=== PATIENT | male | born 1955 | race Caucasian/White ===

== ENCOUNTER 2017-08-02 15:21 | Inpatient (IN) | payer MEDICARE ==
[~2017-08-02] VITALS: Ht 193 cm; Wt 120.2 kg
--- NOTE | ~2017-08-02 | CO ---
Unit #: [id number] #: [id number] Patient: RAHEEM HOLMAN [id number] [address] [address] [id number] I MR#: [id number] NAME: RAHEEM HOLMAN ROOM: 549 Age: 62 Sex: M Admission Date: 08/02/2017 : 1955 Attending Physician: Nichole Stephens M.D. Primary Care Physician: Johan Huerta M.D. CONSULTATION REPORT REASON FOR CONSULTATION Followup. DISCUSSION Mr. Raheem Holman is a 62-year-old white male, seen in room 549 bed 1 on 08/07/2017. The patient dressed casually, lying comfortably in bed. The patient's both legs were bandaged. The patient has a history of edema with maggots, not taking care of himself. Vital signs; temperature 99.2, pulse 82, respirations 22, blood pressure 116/75, and oxygen saturation 95%. The patient was pleasant and cooperative during interview. The patient is currently on oxygen 4 L on IV vanc, Zosyn, Diflucan. The patient denied any suicidal or homicidal ideation. Pleasant and cooperative. Still feeling sad and depressed. REVIEW OF SYSTEMS Complete review of systems unremarkable except as mentioned above. MENTAL STATUS EXAMINATION General appearance, the patient dressed casually in hospital attire, lying comfortably in bed. Attention span and concentration, fair. Speech, regular rate and coherent. Oriented in time, place, and person. Mood and affect; sad, and depressed. Thought process, coherent. Thought content; the patient denied any thoughts of harming self or others or any hallucination, but sad and depressed. Recent and remote memory, fair. Language, intact. Fund of knowledge, fair. Insight and judgment, fair to slightly impaired. DIAGNOSES Psychiatric: Major depressive disorder, recurrent, severe, F33.2. ASSESSMENT AND PLAN 1. Supportive psychotherapy and psychoeducation provided to the patient. 2. Educated about benefits and side effects of medication and course and prognosis of illness. 3. Advised to continue with current treatment, also with Prozac 20 mg daily. If needed, consider further adjustment of medication. Please feel free to call if any questions telephone #[phone]. Dictated by... Blanche Purvis/breann Unit #: [id number] #: [id number] Patient: RAHEEM HOLMAN TD: 08/07/2017 17:50 JOB #: [id number] CONSULTATION REPORT Page 1 of 1 X Ildefonso Chauhan MD X CONSULTATION REPORT
--- NOTE | ~2017-08-02 | CR72 ---
[facility] A Service of [facility] & [facility] RADIOLOGY TEXT RESULTS PATIENT: JOANA DUMONT LOCATION: B 549-01 : [birth year] UNIT #: [id number] AGE: [address]: BERNICE RAMIRES V SEX: M ORDER DR: [id number] [facility] [address] [place], [place] [address] [id number] I MR#: [id number] Acc #: [id number] NAME: JOANA DUMONT : 1955 SEX: M STUDY DATE/TIME: 08/02/2017 16:18 UNIT: [facility] ROOM: [facility] STUDY DESCRIPTION: CR Chest Single View Portable Attending Physician: Bernice Ramires M.D. Ordering Physician: Manuel Ames M.D. Primary Care Physician: Johan Huerta M.D. MEDICAL IMAGING REPORT This report is preliminary unless electronic signature is present EXAM Portable chest, 08/02/2017. HISTORY 62-year-old male with shortness of air for 6 months. Essential hypertension. COMPARISON None available. FINDINGS Frontal chest demonstrates mild bibasilar atelectasis. No pneumothorax. Heart size is borderline. Mediastinum and pulmonary vasculature unremarkable. IMPRESSION Borderline cardiomegaly. Bibasilar atelectasis. Dictated by... Santino Trujillo M.D. THIS IS AN ELECTRONICALLY VERIFIED REPORT Santino Trujillo M.D. at 08/03/2017 8:07 AM HOANG/macrina TD: 08/03/2017 01:57 JOB #: [id number] MEDICAL IMAGING REPORT Page 1 of 1 COPY
--- NOTE | ~2017-08-02 | CO ---
Unit #: [id number] #: [id number] Patient: RAHEEM HOLMAN [id number] [facility] [address], [place] [address] [id number] I MR#: [id number] NAME: RAHEEM HOLMAN ROOM: 549 Age: 62 Sex: M Admission Date: 08/02/2017 : 1955 Attending Physician: Nichole Stephens M.D. Primary Care Physician: Johan Huerta M.D. Consultation Date: 08/06/2017 CONSULTATION REPORT REASON FOR CONSULTATION Followup. DISCUSSION Mr. Raheem Holman is a 62-year-old white male, seen in room 549 bed 1 on 08/06/2017 at [facility]. The patient lying comfortably, pleasant, and cooperative. Denied any side effects from medication. Denied any suicidal or homicidal ideation, but still sad, depressed. Vital signs; temperature 97.4, pulse 94, respirations 18, blood pressure 124/73, and oxygen saturations 94%. REVIEW OF SYSTEMS Complete review of systems unremarkable except as mentioned above. MENTAL STATUS EXAMINATION General appearance, the patient is tall, casually dressed. The patient's both legs were bandaged. Attention span and concentration, fair. Speech; regular rate and coherent. Oriented in time, place, and person. Mood and affect, labile. Thought process, coherent. Thought content, the patient denied any thoughts of harming self or others or any psychotic symptom. Recent and remote memory, fair. Language, intact. Fund of knowledge, fair. Insight and judgment, fair to slightly impaired. DIAGNOSES Major depressive disorder, recurrent, severe, F33.2. ASSESSMENT AND PLAN 1. Supportive psychotherapy and psychoeducation provided to the patient. 2. Educated about benefits and side effects of medication and course and prognosis of illness. 3. Advised to continue with current medication; Prozac 20 mg daily. If needed, consider further adjustment of medication. Please feel free to call if any question, telephone #[phone]. Dictated by... Ildefonso Chauhan M.D. HONG/breann TD: 08/06/2017 17:22 JOB #: [id number] Unit #: [id number] #: [id number] Patient: RAHEEM HOLMAN CONSULTATION REPORT Page 1 of 1 X Ildefonso Chauhan MD CONSULTATION REPORT
--- NOTE | ~2017-08-02 | US84 ---
[id number] [facility] [address] [place], [place] [address] [id number] I MR#: [id number] Acc #: [id number] NAME: JOANA DUMONT : 1955 SEX: M STUDY DATE/TIME: 08/04/2017 11:22 UNIT: C5B ROOM: [facility] STUDY DESCRIPTION: US LE Veins Complete Saad Stdy Attending Physician: Tal Borden M.D. Ordering Physician: Tal Borden M.D. Primary Care Physician: Johan Huerta M.D. MEDICAL IMAGING REPORT This report is preliminary unless electronic signature is present EXAM Bilateral lower extremity venous duplex Doppler. INDICATIONS Swelling and edema and bilateral lower extremities for 6 months. COMPARISON 04/19/2013. TECHNIQUE Venous ultrasound examination of both lower extremities was performed using grayscale, spectral Doppler and color flow Doppler imaging. FINDINGS The examination is negative. There is no evidence of deep venous thrombus from the groin to the lower calf bilaterally. Visualized greater saphenous veins are also patent. IMPRESSION Negative examination. No evidence of lower extremity DVT. Dictated by... Reynaldo Zhang M.D. THIS IS AN ELECTRONICALLY VERIFIED REPORT Reynaldo Zhang M.D. at 08/05/2017 1:25 PM JESSA/barron TD: 08/05/2017 05:16 JOB #: [id number] MEDICAL IMAGING REPORT Page 1 of 1 COPY
--- NOTE | ~2017-08-02 | DS ---
Unit #: [id number] #: [id number] Patient: JOANA DUMONT [id number] [facility] [place] [facility]. [place], [place] [address] [id number] I MR#: [id number] NAME: JOANA DUMONT ROOM: 549 Age: 62 Sex: M Admission Date: 08/02/2017 : 1955 Discharge Date: 08/08/2017 Attending Physician: Nichole Stephens M.D. Primary Care Physician: Johan Huerta M.D. DISCHARGE SUMMARY DIAGNOSIS ON ADMISSION Bilateral lower extremity cellulitis. DIAGNOSES ON DISCHARGE 1. Bilateral lower extremity cellulitis. 2. Chronic systolic congestive heart failure. 3. Azhxiqkn-ye-hbnzat pulmonary hypertension. 4. Morbid obesity. 5. Major depression. 6. Ejection fraction of 45%. 7. Utsk-cs-fbmpgbgr tricuspid regurgitation. CONSULTATIONS 1. Dr. Huerta in cardiac consultation. 2. Dr. Chauhan in psychiatric consultation. 3. Patient was seen by Dr. Beckham in ID consultation. LABS AND PROCEDURES DONE LABS: The patient's creatinine today is 0.8, sodium is 139, potassium is 4.1. LDL is 95. TSH was 1.89. WBC was 10.3, hemoglobin 10.8, platelet count was 318. Patients fasting glucose level was 105 this morning. Blood culture was negative. IMAGING: Bilateral lower extremity venous Dopplers did not reveal any evidence of venous (1) . HOSPITAL COURSE Wvcam-aert-dae patient was admitted to [facility] with shortness of air. Details are as per admission H and P. 1. Bilateral lower extremity cellulitis. Patient was treated with IV antibiotics and was seen by infectious disease in consultation. Patient's redness has improved, but infectious disease has recommended that it will take long time because of the edema. 2. Congestive heart failure. Patient was treated with IV diuretics. Was seen by Dr. Huerta in consultation. Patient had ejection fraction of 35 to 40% in 2014. Patient also had a cardiac cath in 2010, which had shown nonobstructive coronary artery disease. Patient has responded well and is on fluid restriction. Patient will be discharged to rehab after seen by cardiology and will need to follow with them on outpatient basis. Patient admits that he was noncompliant with his care. Patient had echocardiogram done on this admission, which had shown ejection fraction of 45%. Patient was seen by physical therapy who has recommended subacute rehab. Unit #: [id number] #: [id number] Patient: JOANA DUMONT PHYSICAL EXAMINATION GENERAL: Today, patient is comfortable, is not in any acute distress. VITAL SIGNS: His vital signs reveal temperature of 98.1. Pulse is 80 per minute. Respiratory rate is 16 per minute. Blood pressure is 154/83. HEENT: HEENT examination revealed no conjunctival congestion. Sclera is nonicteric. NECK: Neck is supple. Trachea is central. RESPIRATORY: Respiratory examination revealed decreased breath sounds bilaterally. There are no wheezes or crackles. HEART: Heart is regular rate and rhythm. S1, S2. ABDOMEN: Abdomen is soft, nontender. Bowel sounds are present in all 4 quadrants. SKIN: Skin is warm and dry. EXTREMITIES: 2+ edema. Patient has some weeping edema. RECOMMENDATIONS ON DISCHARGE 1. Condition is stable. 2. Activity is as tolerated. DISCHARGE MEDICATIONS Medications are: 1. Lasix 40 mg p.o. b.i.d. (8 a.m. and 2 p.m.). 2. Lisinopril 2.5 mg p.o. daily. 3. Coreg 6.25 mg p.o. b.i.d. 4. Prozac 20 mg p.o. daily. 5. Tylenol 650 mg p.o. q.4 hours p.r.n. 6. Spironolactone 25 mg p.o. daily. 7. Levaquin 750 mg p.o. daily for 1 week. 8. Doxycycline 100 mg p.o. b.i.d. for 1 week. 9. Potassium chloride 20 mEq p.o. daily. DISPOSITION Patient will be transferred to rehab facility. FOLLOWUP Patient is advised to follow up with cardiology as recommended. DISCHARGE DIET Please make note patient is on 1,800 mL fluid restriction and daily weight. NOTE: The plan was discussed in detail with patient, who showed complete understanding. We will check patient's pulse ox on room air prior to discharge to determine if he will need oxygen on transfer. Patient is promising to comply with his care. Dictated by... Blanche Peters/gabi TD: 08/08/2017 12:37 JOB #: [id number] Unit #: [id number] #: [id number] Patient: JOANA DUMONT Gertrude DISCHARGE SUMMARY Page 1 of 1 X Nichole Stephens MD DISCHARGE SUMMARY
--- NOTE | ~2017-08-02 | HP ---
Unit #: [id number] #: [id number] Patient: JOANA DUMONT [address] [facility]. [place], [place] [address] [id number] I MR#: [id number] NAME: JOANA DUMONT. ROOM: 29510 Age: 62 Sex: M Admission Date: 08/02/2017 : 1955 Attending Physician: Tal Borden M.D. Primary Care Physician: Johan Huerta M.D. HISTORY AND PHYSICAL HISTORY OF PRESENT ILLNESS The patient is a 62-year-old man with apparent prior history of congestive heart failure. The patient does not follow up with a primary care physician and does not take any medications at home. The last admission the patient had was at [facility] for bilateral leg swelling as well as maggots to his lower extremities. The patient presents today with symptoms of swelling of both of his lower extremities along with foul smelling legs which have been persistent in worsening over the past six months, more so over the last one month. PAST MEDICAL HISTORY Congestive heart failure, previous lower extremity cellulitis and lower extremity edema and maggots to both lower extremities. SOCIAL HISTORY Quit smoking 12 years ago, no longer smokes, no alcohol use, no illicit substance use. ALLERGIES No known drug allergies. HOME MEDICATIONS None. REVIEW OF SYSTEMS Positive for mild shortness of breath on exertion, bilateral lower extremity swelling, bilateral lower extremity smell, maggots over lower extremities. PHYSICAL EXAMINATION GENERAL: Awake, alert, oriented, morbidly obese. HEENT: Extraocular muscles intact. PERRLA. Head atraumatic/normocephalic. NECK: No JVD. Supple. Trachea midline. CARDIAC: Regular rate and rhythm. LUNGS: Bilateral air entry. Scattered rhonchi. ABDOMEN: Soft, nontender, bowel sounds positive. EXTREMITIES: Bilateral lower extremity edema, erythema, also has foul smell to it and sloughing of skin along with maggots. SENIOR WEALTH ADVISOR: No acute focal deficits. ASSESSMENT AND PLAN 1. Lower extremity cellulitis, severe, with bilateral lower extremity Unit #: [id number] #: [id number] Patient: JOANA DUMONT edema severe. Plan is to order empiric IV broad-spectrum antibiotics. Order wound care consultation. With regular cleansing to the lower extremities twice a day and Kerlix wrap. Obtain records from last admission at [facility]. 2. Congestive heart failure, qpvxy-lv-eknqhfs. Plan is to continue IV diuresis with Lasix. Start patient on DEBBI inhibitor. Followup chest x-ray tomorrow. 3. DVT prophylaxis Lovenox 40 mg subcu q.24 h. Bilateral lower extremity venous Dopplers. Dictated by Blanche Pimentel/rosy TD: 08/02/2017 20:46 JOB #: [id number] HISTORY AND PHYSICAL Page 1 of 1 X X HISTORY AND PHYSICAL
--- NOTE | ~2017-08-02 | US136 ---
[facility] A Service of [facility] & [facility] RADIOLOGY TEXT RESULTS PATIENT: JOANA DUMONT LOCATION: [facility] 549-01 : [birth year] UNIT #: [id number] AGE: [address]: BERNICE RAMIRES V SEX: M ORDER DR: [id number] [facility] [address] [place], [place] [address] [id number] I MR#: [id number] Acc #: [id number] NAME: JOANA DUMONT : 1955 SEX: M STUDY DATE/TIME: 08/03/2017 14:55 UNIT: [facility] ROOM: [facility] STUDY DESCRIPTION: US U/L Ext Art Study Ltd Bilat Attending Physician: Bernice Ramires M.D. Ordering Physician: Bernice Ramires M.D. Primary Care Physician: Johan Huerta M.D. MEDICAL IMAGING REPORT This report is preliminary unless electronic signature is present EXAM Bilateral lower extremity arterial ultrasound, ankle brachial index study HISTORY Bilateral rest pain and claudication in lower extremities with dependent rubor atrophic nails and bilateral leg swelling. Symptoms for 6 months. FINDINGS The right brachial pressure is 121, the left could not be obtained because of an IV site. The right DP pressure is 87, the right PT pressure is 97, right great toe pressure is 61. Left PT pressure is 112, left DP pressure 98, left great toe pressure is 71. IMPRESSION Mildly decreased pressures in both ankles with an ROMAN of 0.8 on the right and 0.93 on the left. Pressures were identified in both great toes. Dictated by... Kevin Carrero M.D. THIS IS AN ELECTRONICALLY VERIFIED REPORT Kevin Carrero M.D. at 08/04/2017 9:06 AM LETY/erasmo TD: 08/04/2017 03:36 JOB #: [id number] MEDICAL IMAGING REPORT Page 1 of 1 COPY
--- NOTE | ~2017-08-02 | CO ---
Unit #: [id number] #: [id number] Patient: RAHEEM HOLMAN [id number] [facility] [address] [place], [place] [address] [id number] I MR#: [id number] NAME: RAHEEM HOLMAN. ROOM: 549 Age: 62 Sex: M Admission Date: 08/02/2017 : 1955 Attending Physician: Tal Borden M.D. Primary Care Physician: Johan Huerta M.D. Consultation Date: 08/05/2017 CONSULTATION REPORT REASON FOR CONSULTATION Depression. HISTORY OF PRESENT ILLNESS Mr. Raheem Holman is a 62-year-old white male, seen in room 549 bed 1 on 08/05/2017 at [facility]. The patient dressed casually in hospital attire, seemed somewhat anxious and nervous. The patient has multiple bandages on both his lower leg due to edema. The patient currently denied any suicidal or homicidal ideation. Denied any psychotic symptom. Reported feeling sad and depressed. Reported he was procrastinating to come to the hospital and ended up getting very sick. The patient's vital signs; temperature 98.4, pulse 89, respirations 20, blood pressure 115/50, oxygen saturations 96%. The patient was admitted due to symptoms of congestive heart failure, noncompliant with medication, leg swelling as well as maggots in his lower extremity. The patient presented with symptoms of swelling to the lower extremity and foul-smelling worsening in the last 6 months. The patient has been neglecting his care to the point worsening of his CHF leading to lower extremity cellulitis and lower extremity edema and maggots in both lower extremity. The patient was somewhat guarded, paranoid. The patient's vital signs; temperature 98.4, pulse 89, respirations 20, blood pressure 115/50, oxygen saturations 96%. PAST PSYCHIATRIC HISTORY Unknown for any history of any psychiatric treatment, depression, or suicide attempt. MEDICAL HISTORY Remarkable for history of CHF, lower extremity cellulitis, edema. ALLERGIES No known drug allergies. HOME MEDICATIONS None. FAMILY HISTORY AND SOCIAL HISTORY The patient has a poor support system. No history of abuse. Denied use of any drugs or alcohol. REVIEW OF SYSTEMS Complete review of systems is unremarkable except as mentioned above. PHYSICAL EXAMINATION Unit #: [id number] #: [id number] Patient: RAHEEM HOLMAN Vital signs, please see above. MENTAL STATUS EXAMINATION General appearance, the patient tall, dressed casually in hospital attire, has a bandages in both of legs. Attention span and concentration, fair. Speech, regular rate. Oriented in time, place, and person. Mood and affect; sad and depressed. Thought process, circumstantial. Thought content, the patient denied any thoughts of harming self or others, but somewhat guarded and paranoid. Recent and remote memory, fair. Language, intact. Fund of knowledge, fair. Insight and judgment, fair to slightly impaired. DIAGNOSES Psychiatric: Major depressive disorder, recurrent, severe, F33.2; rule out psychosis, not otherwise specified, F29.0. Secondary diagnosis: Deferred. Medical diagnosis: Please refer to H and P. Stressors: Psychosocial stressors. ASSESSMENT AND PLAN 1. Supportive psychotherapy and psychoeducation provided to the patient. 2. Educated about benefits and side effects of medication and course and prognosis of illness. 3. Advised to continue with current treatment and advised to start the patient on Prozac 20 mg daily due to long acting medication half-life of 28 days. If needed, consider medication such as Zyprexa. We will continue to follow. Please feel free to call if any question telephone #[phone]. Dictated by... Ildefonso Chauhan M.D. HONG/breann TD: 08/05/2017 16:18 JOB #: [id number] CONSULTATION REPORT Page 1 of 1 X Ildefonso Chauhan MD X CONSULTATION REPORT
--- NOTE | ~2017-08-02 | CO ---
Unit #: [id number] #: [id number] Patient: JOANA DUMONT [id number] [address] [place], [place] [address] [id number] MR#: [id number] NAME: JOANA DUMONT ROOM: 549 Age: 62 Sex: M Admission Date: 08/02/2017 : 1955 Attending Physician: Nichole Stephens M.D. Primary Care Physician: Johan Huerta M.D. CONSULTATION REPORT REASON FOR CONSULTATION Congestive heart failure. HISTORY OF PRESENT ILLNESS This is a 62-year-old white male, who is known to Dr. Huerta, who has a history of chronic systolic and diastolic heart failure with ejection fraction per cardiac catheterization in 2010 was 20% to 25%. Cardiac catheterization findings showed 90% stenosis in the second marginal branch and first diagonal branch, for which he was treated medically because of absence of chest pain. AICD was discussed; however, the patient failed to follow up with Cardiology. The patient presents to the emergency room with a complaint of lower extremity edema and shortness of breath. He has a longstanding history of lower extremity edema, that has worsened over the past one month. He reports dyspnea on exertion with occasional dizziness. He has no chest pain. He has occasional palpitations. He denies paroxysmal nocturnal dyspnea or orthopnea. He states he is in the bed most of the day and only gets up to fix food and go to the bathroom. He uses a walker. He states his activity is limited because of short oxygen cord. He drinks six 15 ounces of bottle water a day and eats mostly processed foods like Ramen noodles and TV-type dinners. Friend goes to the grocery for him. He does not leave the house. He has not seen a MD for several years nor does he take any medications. His hygiene is also poor. BNP on admission was 98. His chest x-ray did not denote heart failure. He has no dyspnea at rest. PAST MEDICAL HISTORY 1. Right and left heart cardiac catheterization on 05/17/2011 shows left main and right coronary artery are normal. Left circumflex artery is nondominant vessel, normal. Proximal first marginal branch with 30% stenosis. Second marginal branch 90%. LAD normal. First diagonal branch 90% after the origin. Second diagonal branch normal. Ejection fraction of 20% to 25%. Pulmonary artery pressure is 55/28 with mean of 38. Pulmonary capillary wedge pressure is A-wave 25, V-wave 25, mean of 23. He was continued on medical therapy. 2. A 2D echocardiogram on 04/28/2015 shows ejection fraction of 35% to 40% while on dobutamine. Right ventricle is [id number] dilated. Right atrium mildly dilated. Valves are not well visualized. 3. Nonischemic cardiomyopathy. 4. Chronic systolic/diastolic heart failure. 5. Hypertension. 6. Hyperlipidemia. 7. COPD, on home oxygen. 8. Pulmonary hypertension. Unit #: [id number] #: [id number] Patient: JOANA DUMONT 9. Former smoker. 10. Obesity. PAST SURGICAL HISTORY 1. Right forearm cyst removal. 2. Forehead tumor excision. 3. Tonsillectomy. 4. Appendectomy. SOCIAL HISTORY The patient lives at home alone. He quit smoking 12 years ago, but previously smoked three packs of cigarettes a day. He denies illicit drug or alcohol use. Ambulates with a walker. FAMILY HISTORY Positive for myocardial infarction in his father at age 83. ALLERGIES No known drug allergies. HOME MEDICATIONS No current medications. REVIEW OF SYSTEMS CONSTITUTIONAL: Negative for fever or chills. Has no weight gain or weight loss. HEENT: No headache. No vision changes or difficulty with swallowing. Has occasional dizziness. CARDIOVASCULAR: Has no symptoms of angina. Reports occasional palpitations. Denies paroxysmal nocturnal dyspnea and orthopnea. No syncope or near syncope. RESPIRATORY: Has dyspnea, that occurs on exertion. Occasional nonproductive cough. No hemoptysis. GASTROINTESTINAL: No abdominal pain, nausea, or vomiting. EXTREMITIES: Positive for lower extremity edema. PHYSICAL EXAMINATION VITAL SIGNS: Blood pressure 113/74, heart rate 75, temperature 98.7. BMI of 32. GENERAL: This is an obese 62-year-old white male, who is in no acute respiratory distress. NEUROLOGIC: He is awake, alert, and oriented. There are no focal weaknesses. NECK: Trachea is midline. No thyromegaly or lymphadenopathy. No jugular venous distention. HEART: S1 and S2 heart sounds are normal. No murmurs. No rubs or clicks. Regular rate and rhythm with occasional ectopic beat. LUNGS: Clear with diminished breath sounds throughout. No rales, rhonchi, or wheezing. ABDOMEN: Soft, obese. Good bowel sounds are present. No organomegaly. EXTREMITIES: With 2+ leg edema. SKIN: Warm and dry. Bilateral lower extremities with redness and thick scaly skin. DIAGNOSIS STUDIES LABORATORY RESULTS: Hemoglobin 10.5, hematocrit 31.8, platelet count 341, and white count 9.9. Sodium 136, potassium 3.1, BUN 9, creatinine 0.9, glucose 113, and magnesium 1.4. BNP 98 on admission. Troponin is less Unit #: [id number] #: [id number] Patient: JOANA DUMONT than 0.05 on admission. IMAGING STUDIES: Chest x-ray noted for COPD. ABIs 0.8 on the right, 0.93 on the left. Venous Doppler study, negative for deep vein thrombosis. CARDIOVASCULAR STUDIES: Electrocardiogram, sinus tachycardia, rate of 110 beats per minute with frequent premature ventricular complexes. Incomplete right bundle-branch block. IMPRESSION 1. Bilateral lower extremity cellulitis. 2. Chronic systolic/diastolic heart failure. 3. Nonischemic cardiomyopathy with ejection fraction of 35% to 40% in 2010 while on dobutamine. 4. Hypertension. 5. Hyperlipidemia. 6. Chronic obstructive pulmonary disease, on home oxygen. 7. Hypokalemia. 8. Hypomagnesemia. 9. Nonsustained ventricular tachycardia. 10. Coronary artery disease with 90% stenosis to the first diagonal and first marginal branch per cardiac catheterization in 2010. PLAN 1. Cardiology was consulted for congestive heart failure. The patient is currently on IV diuretics. We will place on fluid and sodium restriction. 2. The patient has been started on DEBBI inhibitor. We will control heart rate with addition of beta-jae given nonsustained ventricular tachycardia. 3. Replace electrolytes. 4. We will start on aspirin because the history of coronary artery disease. 5. Lipid levels will be obtained. 6. Further recommendations to follow. Thank you for allowing us to assist with this patient's care. Dictated by... Parag Gonzalez A.P.R.N. for Blanche Delcid/breann TD: 08/07/2017 08:44 JOB #: [id number] Unit #: [id number] #: [id number] Patient: JULIA,JOANA R CONSULTATION REPORT Page 1 of 1 X Parag Gonzalez APRN CONSULTATION REPORT
--- NOTE | ~2017-08-02 | EKG ---
PATIENT: JOANA DUMONT UNIT #: [id number] Ventricular Rate: 100 BPM Atrial Rate: 100 BPM P-R Interval: 154 ms QRS Duration: 120 ms Q-T Interval: 378 ms QTC Calculation(Bezet): 487 ms P [place]: 73 degrees Calculated R [place]: 51 degrees Calculated T [place]: 55 degrees Diagnosis Line: Sinus rhythm with frequent and consecutive Diagnosis Line: Premature ventricular complexes and Premature Diagnosis Line: atrial complexes Diagnosis Line: Incomplete right bundle branch block Diagnosis Line: Possible Inferior infarct , age undetermined Diagnosis Line: Abnormal ECG Diagnosis Line: When compared with ECG of 02-AUG-2017 16:13, Diagnosis Line: Premature ventricular complexes are now Present Diagnosis Line: Borderline criteria for Inferior infarct are now Diagnosis Line: Present Diagnosis Line: Confirmed by EKTA DURAN MD ([id number]) on 08/11/2017 Diagnosis Line: 3:16:05 PM INTERPRETING MD: RENEE ONOFRE
--- NOTE | ~2017-08-02 | CO ---
Unit #: [id number] #: [id number] Patient: RAHEEM HOLMAN [id number] [place], [place] [address] [id number] MR#: [id number] NAME: RAHEEM HOLMAN ROOM: 549 Age: 62 Sex: M Admission Date: 08/02/2017 : 1955 Attending Physician: Nichole Stephens M.D. Primary Care Physician: Johan Huerta M.D. Consultation Date: 08/08/2017 CONSULTATION REPORT REASON FOR CONSULTATION Followup. DISCUSSION Mr. Raheem Holman is a 62-year-old white male, seen in room 549, bed 1 on 08/08/2017 at [facility]. The patient dressed casually, lying comfortably in bed. The patient reports feeling better, sleeping good. No side effects from medication. Compliant with medication. The patient denied any suicidal or homicidal ideation. Denied any psychotic symptom. Vital signs; temperature 97.9, pulse 52, respirations 18, blood pressure 133/81, oxygen saturation 100%. 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 REVIEW OF SYSTEMS Complete review of system unremarkable. MENTAL STATUS EXAMINATION General appearance; the patient dressed in hospital attire, lying comfortably in bed. Attention span and concentration, fair. Speech, regular rate. Oriented in time, place, and person. Mood and affect, sad and dysphoric. Thought process, coherent. Thought content, the patient denied any thoughts of harming self or others or any psychotic symptom. Recent and remote memory, fair. Language, intact. Fund of knowledge, fair. Insight and judgment, fair to slightly impaired. DIAGNOSIS Psychiatric: Major depressive disorder, recurrent, severe, F33.2. ASSESSMENT/PLAN 1. Supportive psychotherapy and psychoeducation provided to the patient. 2. Educated about benefits and side effects of medication and course and prognosis of illness. 3. Advised to continue with current medication. If needed, consider further adjustment of medication. Please feel free to call if any question, telephone #[phone]. Dictated by... Ildefonso Chauhan M.D. HONG/breann TD: 08/08/2017 15:29 Unit #: [id number] #: [id number] Patient: RAHEEM HOLMAN Gertrude JOB #: [id number] CONSULTATION REPORT Page 1 of 1 X Ildefonso Chauhan MD CONSULTATION REPORT
--- NOTE | ~2017-08-02 | CR63 ---
[facility] A Service of [facility] RADIOLOGY TEXT RESULTS PATIENT: JOANA DUMONT LOCATION: B 549-01 : [birth year] UNIT #: [id number] AGE: [address]: BERNICE RAMIRES V SEX: M ORDER DR: [id number] [facility] [address] [place], [place] [address] [id number] MR#: [id number] Acc #: [id number] NAME: JOANA DUMONT : 1955 SEX: M STUDY DATE/TIME: 08/03/2017 10:53 UNIT: [facility] ROOM: [facility] STUDY DESCRIPTION: CR Chest 2 View Attending Physician: Bernice Ramires M.D. Ordering Physician: Bernice Ramires M.D. Primary Care Physician: Johan Huerta M.D. MEDICAL IMAGING REPORT This report is preliminary unless electronic signature is present EXAM Chest 08/03/2017 HISTORY 62-year-old male patient short of breath, edema in bilateral lower extremities past 6 months. Previous smoker. COMPARISON Portable chest 08/02/2017 FINDINGS Two-view chest demonstrates normal heart size. Hilar structures and mediastinal contours are preserved. Lungs are hyperinflated with flattened diaphragms. There are no infiltrates. Costophrenic angles are poorly defined. IMPRESSION COPD. No acute chest finding. Dictated by... Ismael Blum M.D. THIS IS AN ELECTRONICALLY VERIFIED REPORT Ismael Blum M.D. at 08/05/2017 12:02 PM AMADEO/tasha TD: 08/03/2017 15:35 JOB #: [id number] MEDICAL IMAGING REPORT Page 1 of 1 COPY
--- NOTE | ~2017-08-02 | EKG ---
PATIENT: JOANA DUMONT UNIT #: [id number] Ventricular Rate: 110 BPM Atrial Rate: 110 BPM P-R Interval: 154 ms QRS Duration: 110 ms Q-T Interval: 356 ms QTC Calculation(Bezet): 481 ms P [place]: 36 degrees Calculated R [place]: 47 degrees Calculated T [place]: 46 degrees Diagnosis Line: Sinus tachycardia with Premature atrial complexes Diagnosis Line: with Aberrant conduction Diagnosis Line: Incomplete right bundle branch block Diagnosis Line: Borderline ECG Diagnosis Line: No previous ECGs available Diagnosis Line: Confirmed by LUIS ART MD ([id number]) on Diagnosis Line: 08/03/2017 10:53:26 AM INTERPRETING MD: RUBENS ONOFRE
[~2017-08-02 15:21] MED LIST: ACETAMINOPHEN PO; ALBUTEROL17 GM INH; ALDACTONE PO; ALDACTONE25 MG PO; ASPIRIN ENTERI325 M1 PO; ASPIRIN325 M1 PO; BACTROBAN22 GM TP; CARVEDILOL3.125 MG PO; CIPRO PO; CLARITIN10 M1 PO; CLOBEVATE45 GM TOP; COATED ASPIRIN325 M1 PO; COREG12.5 MG PO; COREG6.25 MG PO; DAKIN'S MODIF1000 ML EXT; FLONASE 0.05% N16 G1; FUROSEMIDE40 MG PO; LASIX PO; LASIX80 MG PO; LISINOPRIL20 MG PO; NICOTINE TRANSD21 MG EXT; NO MEDICATIONS; PREDNISONE PO; PROAIR HFA8.5 GM IH; SANTYL15 G1 TP; SYMBICORT 16010.2 GM IH; TRIAMCINOLONE A15 G2 EXT; ZESTRIL40 MG PO
[2017-08-02 16:27] LABS: BASOPHIL# 0.1 X10e3 (0-0.3); BASOPHIL% 0.8 % (0-2.5); EOSINOPHIL# 0.4 X10e3 (0-0.7); EOSINOPHIL% 3.8 % (0.0-7.0); HEMOGLOBIN 12.4 gm/dL (13.0-16.0); LYMPHOCYTE# 0.8 X10e3 (1.0-3.5); LYMPHOCYTE% 7.5 % (17.0-45.0); MEAN CELL VOLUME 85.4 FL (83-96); MEAN CORPUSCULAR HEMOGLOBIN 27.8 PG (28-34); MEAN CORPUSCULAR HGB CONC 32.6 g/dL (30-36); MEAN PLATELET VOLUME 6.1 FL (6.5-11.5); MONOCYTE# 0.6 X10e3 (0-1.0); MONOCYTE% 5.4 % (3.0-12.0); NEUTROPHIL# 9.1 X10e3 (1.5-7.1); NEUTROPHIL% 82.5 % (40-75); PLATELET COUNT 472 X10e3 (140-420); RED BLOOD COUNT 4.45 X10e (3.90-5.60); RED CELL DISTRIBUTION WIDTH 16.7 % (11.0-15.5)
[2017-08-02 16:38] LABS: POC - TROPONIN <0.05 ng/mL (<=0.05)
[2017-08-02 16:39] LABS: DIFF IND NO
[2017-08-02 16:46] LABS: CALCIUM SERUM 8.8 mg/dL (8.4-10.2); GLOM FILT RATE Estimated 81.5 mL/min (>60); POTASSIUM 5.3 mmol/L (3.5-5.1)
[2017-08-03 03:39] LABS: ARTERIAL BLD GAS O2 SATURATION 92.2 % (90.0-100.0); ARTERIAL BLOOD GAS CARBOXY HB 1.6 %sat (0.0-9.0); ARTERIAL BLOOD GAS HCO3 33.2 mmol/L; ARTERIAL BLOOD GAS MET HB 0.8 %sat (0.0-2.0); ARTERIAL BLOOD GAS pH 7.357 (7.350-7.450)
[2017-08-03 03:40] LABS: ARTERIAL BLOOD GAS ALLEN TEST NORMAL; ARTERIAL BLOOD GAS ART SITE RIGHT RADIAL; ARTERIAL BLOOD GAS DELIVERY NASAL CANNULA; ARTERIAL BLOOD GAS PCO2 59.1 mmHg (35.0-45.0); ARTERIAL BLOOD GAS PO2 70.3 mmHg (80.0-100); ARTERIAL DRAW? YES
[2017-08-04 05:42] LABS: BUN/CREATININE RATIO 14.44; CALCIUM SERUM 7.7 mg/dL (8.4-10.2); CREATININE SERUM 0.9 mg/dL (0.6-1.4); GLOM FILT RATE Estimated 92.5 mL/min (>60); POTASSIUM 3.8 mmol/L (3.5-5.1)
[2017-08-05 05:35] LABS: HEMATOCRIT 30.9 % (38.0-50.0); HEMOGLOBIN 10.3 gm/dL (13.0-16.0); MEAN CELL VOLUME 85.6 FL (83-96); MEAN CORPUSCULAR HEMOGLOBIN 28.5 PG (28-34); MEAN CORPUSCULAR HGB CONC 33.3 g/dL (30-36); RED BLOOD COUNT 3.61 X10e (3.90-5.60); RED CELL DISTRIBUTION WIDTH 16.4 % (11.0-15.5); WHITE BLOOD COUNT 8.4 X10e3 (4.0-10.5)
[2017-08-05 06:37] LABS: BUN/CREATININE RATIO 13.75; CALCIUM SERUM 7.6 mg/dL (8.4-10.2); CREATININE SERUM 0.8 mg/dL (0.6-1.4); GLOM FILT RATE Estimated 97.1 mL/min (>60); POTASSIUM 3.2 mmol/L (3.5-5.1)
[2017-08-06 03:19] LABS: HEMATOCRIT 31.8 % (38.0-50.0); HEMOGLOBIN 10.5 gm/dL (13.0-16.0); MEAN CELL VOLUME 86.3 FL (83-96); MEAN CORPUSCULAR HEMOGLOBIN 28.5 PG (28-34); MEAN PLATELET VOLUME 6.4 FL (6.5-11.5); RED BLOOD COUNT 3.69 X10e (3.90-5.60); RED CELL DISTRIBUTION WIDTH 15.9 % (11.0-15.5); WHITE BLOOD COUNT 9.9 X10e3 (4.0-10.5)
[2017-08-06 03:54] LABS: CALCIUM SERUM 7.5 mg/dL (8.4-10.2); CREATININE SERUM 0.9 mg/dL (0.6-1.4); GLOM FILT RATE Estimated 92.5 mL/min (>60); POTASSIUM 3.1 mmol/L (3.5-5.1)
[2017-08-07 06:29] LABS: HEMATOCRIT 32.9 % (38.0-50.0); HEMOGLOBIN 10.8 gm/dL (13.0-16.0); MEAN CELL VOLUME 87.1 FL (83-96); MEAN CORPUSCULAR HEMOGLOBIN 28.6 PG (28-34); MEAN CORPUSCULAR HGB CONC 32.8 g/dL (30-36); MEAN PLATELET VOLUME 6.2 FL (6.5-11.5); RED BLOOD COUNT 3.77 X10e (3.90-5.60); RED CELL DISTRIBUTION WIDTH 16.3 % (11.0-15.5); WHITE BLOOD COUNT 10.3 X10e3 (4.0-10.5)
[2017-08-07 07:21] LABS: CHOLESTEROL 145 mg/dL (0-200); HDL CHOLESTEROL 31 mg/dL (29-75); LDL CHOLESTEROL 95 mg/dL (-130); LDL/HDL RATIO 3 RATIO (0-4); TRIGLYCERIDES 93 mg/dL (10-160)
[2017-08-07 08:06] LABS: BUN/CREATININE RATIO 15.55; CALCIUM SERUM 8.1 mg/dL (8.4-10.2); CREATININE SERUM 0.9 mg/dL (0.6-1.4); GLOM FILT RATE Estimated 92.5 mL/min (>60); MAGNESIUM 1.5 mg/dL (1.6-3.0); POTASSIUM 3.6 mmol/L (3.5-5.1)
[2017-08-08 06:35] LABS: BUN/CREATININE RATIO 17.5; CALCIUM SERUM 8.5 mg/dL (8.4-10.2); CREATININE SERUM 0.8 mg/dL (0.6-1.4); GLOM FILT RATE Estimated 97.1 mL/min (>60); POTASSIUM 4.1 mmol/L (3.5-5.1)
== END 2017-08-08 19:56 | DRG 291 ==
LOC: CED 15:21 → CEDOF 19:59 → CED 19:59 → C5B 21:09 → CEDOF 21:09 → C5B 08-06 09:06
PROVIDERS: Emergency Medicine; Internal Medicine; Nurse Practitioner
PROC: B24BZZZ Ultrasonography of Heart with Aorta (ICD-10-PCS; principal; 2017-08-05)
DX: I11.0 Hypertensive heart disease with heart failure (principal); J96.01 Acute respiratory failure with hypoxia; I47.2 Ventricular tachycardia; F33.2 Major depressive disorder, recurrent severe without psychotic features; L03.115 Cellulitis of right lower limb; L03.116 Cellulitis of left lower limb; I27.2 Other secondary pulmonary hypertension; E83.42 Hypomagnesemia; E66.01 Morbid (severe) obesity due to excess calories; I50.43 Acute on chronic combined systolic (congestive) and diastolic (congestive) heart failure; Z68.32 Body mass index [BMI] 32.0-32.9, adult; I07.1 Rheumatic tricuspid insufficiency; E87.6 Hypokalemia; Z87.891 Personal history of nicotine dependence; E78.5 Hyperlipidemia, unspecified; J44.9 Chronic obstructive pulmonary disease, unspecified; I25.10 Atherosclerotic heart disease of native coronary artery without angina pectoris; I42.8 Other cardiomyopathies; Z82.49 Family history of ischemic heart disease and other diseases of the circulatory system
CPT/HCPCS: 36415; 36600; 71010; 71020; 80048; 80061; 80202; 82553; 82803; 83735; 83880; 84443; 84484; 85025; 85027; 87040; 93005; 93306; 93922; 93970; 94640; 94760; 96374; 97110; 97116; 97162; 97166; 97530; 99285; G8987-GO; G8988-GO; G8990-GP; G8991-GP; J1450; J1650; J1940; J2543; J3370; J3475